=== PATIENT | female | born 1995 | race Caucasian/White ===

== ENCOUNTER 2016-12-08 19:53 | Emergency (ER) | payer OTHER | END 2016-12-08 20:49 | disposition home or self-care (01) | LOC: FER 19:53 | DX: S60.222A Contusion of left hand, initial encounter (principal); F17.210 Nicotine dependence, cigarettes, uncomplicated; W22.8XXA Striking against or struck by other objects, initial encounter | CPT/HCPCS: 73130; 99283 ==

== ENCOUNTER 2020-11-27 10:16 | Emergency (ER) | payer OTHER ==
[~2020-11-27 10:16] MED LIST: CLARITIN10 MG PO; DUONEB 2.5-0.5M1 AMP NEB; FLEXERIL10 MG PO; MOTRIN600 MG PO; ONDANSETRON ODT4 MG SL; PREDNISONE 20MG20 MG PO; ZYRTEC-D TABLE1 EACH PO
[2020-11-27] MEDS ORDERED: BACTRIM DS TAB1 EACH PO (11:47)
== END 2020-11-27 12:09 | disposition home or self-care (01) ==
LOC: FER 10:16
DX: L02.415 Cutaneous abscess of right lower limb (principal)
CPT/HCPCS: 87070; 87205; 99282

== ENCOUNTER 2021-03-31 13:38 | Emergency (ER) | payer OTHER ==
[~2021-03-31 13:38] MED LIST changes: +BACTRIM DS TAB1 EACH PO
[2021-03-31 14:52] LABS: CORONAVIRUS 2019 SARS-COV-2 NEGATIVE (NEGATIVE); INFLUENZA A NAA NEGATIVE (NEGATIVE)
== END 2021-03-31 15:53 | disposition home or self-care (01) ==
LOC: FER 13:38
PROVIDERS: Emergency Medicine
DX: R51.9 Headache, unspecified (principal); M54.9 Dorsalgia, unspecified; Z53.21 Procedure and treatment not carried out due to patient leaving prior to being seen by health care provider; Z20.822 Contact with and (suspected) exposure to COVID-19
CPT/HCPCS: 99281; U0002